=== PATIENT | male | born 1975 | race Caucasian/White ===

== ENCOUNTER 2023-01-02 21:52 | Inpatient (IN) | payer MEDICAID, OTHER ==
[~2023-01-02] VITALS: Ht 182.9 cm; Wt 84.1 kg
[2023-01-02 22:08] LABS: BASOPHILS # (AUTO) 0.1 X10'3 (0-0.2); BASOPHILS % (AUTO) 0.8 % (0-1); EOSINOPHILS # (AUTO) 0.3 X10'3 (0-0.9); EOSINOPHILS % (AUTO) 3.9 % (0-6); HEMATOCRIT 49.7 % (42.0-52.0); HEMOGLOBIN 16.8 g/dl (14.0-17.9); LYMPHOCYTES # (AUTO) 2.4 X10'3 (1.1-4.8); LYMPHOCYTES % (AUTO) 33.4 % (21-51); MEAN CORPUSCULAR HEMOGLOBIN 29.5 PG (27.0-31.0); MEAN CORPUSCULAR HGB CONC 33.7 g/dL (33.0-36.5); MEAN CORPUSCULAR VOLUME 87.4 FL (78-98); MEAN PLATELET VOLUME 6.5 FL (7.4-10.4); MONOCYTES # (AUTO) 0.5 X10'3 (0-0.9); MONOCYTES % (AUTO) 6.6 % (2-12); NEUTROPHILS % (AUTO) 55.3 % (42-75); PLATELET COUNT 292 X10'3 (140-440); RED BLOOD COUNT 5.68 X10'6 (4.70-6.10); RED CELL DISTRIBUTION WIDTH 14.4 % (11.5-14.5); WHITE BLOOD COUNT 7.3 X10'3 (4.5-11.0)
[2023-01-02 22:20] LABS: ALANINE AMINOTRANSFERASE 24 U/L (12-78); ALBUMIN 3.1 G/DL (3.4-5.0); ALBUMIN/GLOBULIN RATIO 0.7 (1.1-1.5); ALKALINE PHOSPHATASE 72 IU/L (46-116); ANION GAP 5 (8-16); ASPARTATE AMINO TRANSFERASE 11 U/L (10-37); BILIRUBIN,TOTAL 0.3 MG/DL (0.1-1.0); BLOOD UREA NITROGEN 9 MG/DL (7-18); BUN/CREATININE RATIO 10.7 (10.0-20.0); CHLORIDE 103 MMOL/L (99-107); CREATININE 0.84 MG/DL (0.60-1.10); GLUCOSE 203 MG/DL (70-104); POTASSIUM 3.7 MMOL/L (3.5-5.1); SODIUM 141 MMOL/L (135-145); TOTAL CARBON DIOXIDE 32.9 MMOL/L (24-32); TOTAL PROTEIN 7.4 G/DL (6.4-8.2); eGFR > 90 ML/MIN
[2023-01-02] MEDS ORDERED: losartan 50mg tablet PO ONE (22:40)
[2023-01-03] VITALS (12 sets, daily range): BP systolic 107–185; BP diastolic 50–106
[2023-01-03] MEDS ORDERED: acetaminophen 325mg tablet PO PRN ×2 (01:35)
[2023-01-03] MEDS ORDERED: diphenhydrAMINE 25mg capsule PO PRN (01:35)
[2023-01-03] MEDS ORDERED: HYDROcodone/acetaminophen 10/325mg tab PO PRN (01:35)
[2023-01-03] MEDS ORDERED: mag hydrox/Alum hydrox/simeth 30ml oral suspension PO PRN (01:35)
[2023-01-03] MEDS ORDERED: magnesium hydroxide 30ml (MOM) UD suspension PO PRN (01:35)
[2023-01-03] MEDS ORDERED: diphenhydrAMINE 50 mg/ml inj IV PRN (01:35)
[2023-01-03] MEDS ORDERED: HYDROcodone/acetaminophen 5mg/325mg tablet PO PRN (01:35)
[2023-01-03] MEDS ORDERED: ondansetron 4mg rapidly disintigrating tab PO PRN (01:35)
[2023-01-03] MEDS ORDERED: bisacodyl 10mg suppository rectal RC PRN (01:35)
[2023-01-03] MEDS ORDERED: ondansetron/PF 4mg/2ml inj IV PRN (01:35)
[2023-01-03] MEDS ORDERED: morphine 2 MG/ML inj. syringe IV PRN ×2 (01:35)
[2023-01-03] MEDS ORDERED: aspirin 325mg tablet PO ONE (01:45)
[2023-01-03] MEDS ORDERED: LORazepam 2 mg/ml vial IV ONE (01:50)
[2023-01-03] MEDS ORDERED: iohexol 350MG/ML 100ml bottle IV ONE (02:00)
--- NOTE | 2023-01-03 02:25 | NUR ---
Patient to CT
[2023-01-03] MEDS: normal saline 1000ml 1,000 ML IV SCH ×3 (02:55→21:35)
[2023-01-03 03:41] LABS: APTT 27 SECONDS (22-32); D-DIMER 0.25 MG/L FEU (0-0.50)
[2023-01-03 03:52] LABS: CREATINE KINASE 47 U/L (39-308); LIPASE < 50 U/L (73-393); MAGNESIUM 1.9 MG/DL (1.5-2.4); PHOSPHORUS 3.9 MG/DL (2.3-4.5)
[2023-01-03 03:54] LABS: ETHANOL < 0.010 GM/DL (0.0-0.010)
[2023-01-03 04:01] LABS: HEMOGLOBIN A1C 9.3 % (4.5-6.2)
[2023-01-03] MEDS ORDERED: NO HOME MEDS (04:34)
--- NOTE | 2023-01-03 07:55 | NUR ---
RN PAGED DR ANDINO TO CALL ED D/T PT ADM DGX NSTEMI/TROP 92/HEPARIN DRIP HAS NOT BEEN STARTED.
[2023-01-03] MEDS: varenicline tartrate 1mg tablet PO SCH ×2 (08:00→19:16)
[2023-01-03] MEDS: docusate sod 100mg capsule PO SCH ×2 (08:00→19:15)
--- NOTE | 2023-01-03 08:25 | NUR ---
RN UNABLE TO GET NITRO PATCH OUT OF [facility]. PHARMACY CALLED AND WILL DELIVER TO ED.
[2023-01-03] MEDS: pantoprazole 40mg Tablet.DR PO SCH (08:29)
[2023-01-03] MEDS: aspirin 81mg, enteric-coated 1 TAB TABLET.DR PO SCH (08:29)
[2023-01-03] MEDS: lisinopril 10 MG tablet PO SCH (08:30)
[2023-01-03] MEDS: atorvastatin 20mg tablet PO SCH (08:30)
[2023-01-03] MEDS: heparin, porcine 5000 units/ml vial SQ SCH ×2 (08:32→16:00)
[2023-01-03] MEDS ORDERED: regadenoson 0.4mg/5ml syringe IV PRN (08:35)
[2023-01-03] MEDS ORDERED: aminophylline 250mg/10ml inj. IV PRN (08:35)
[2023-01-03] MEDS ORDERED: nitroGLYCERIN 0.4mg SUBLingual tab SL PRN (08:35)
[2023-01-03] MEDS ORDERED: metoprolol tartrate 1mg/ml inj IV PRN (08:35)
--- NOTE | 2023-01-03 08:39 | NUR ---
DR ANDINO CALLED AND STATED THAT HEPARIN DRIP IS NOT NEEDED. HE WILL ORD HYDRALAZINE PRN FOR UNCONTROLLED BP. RN TO START CHECKING BLOOD SUGAR AND HE WILL PLACE HYPERGLYCEMIA PROTOCOL ORDS. PT WILL HAVE STRESS TEST SO NPO AND NO CAFFEINE.
[2023-01-03] MEDS ORDERED: dextrose 50%-water 50ml dispensing syringe IV PRN ×2 (08:40)
[2023-01-03] MEDS ORDERED: DEXTROSE 15 GM of carb/4 tabs (each vial/BOTTLE has 4 tablets) PO PRN ×2 (08:40)
[2023-01-03] MEDS ORDERED: hydrALAZINE 20mg/ml inj. IV PRN (08:40)
[2023-01-03] MEDS ORDERED: insulin Lispro (HumaLOG) vial - multi-dose SQ SCH (08:40)
[2023-01-03] MEDS ORDERED: MESSAGE TO PHARMACY PO ONE (08:40)
[2023-01-03] MEDS ORDERED: glucagon, human recombinant 1mg kit SUBCUT PRN (08:40)
--- NOTE | 2023-01-03 09:08 | NUR ---
received report from Evelia RN, pt has had no caffeine for 2 days, no food since 01/02 at 1600. Plan to do cardiac stress test this am.
--- NOTE | 2023-01-03 09:14 | NUR ---
RN WILL CRUTCHER HELPER LOPRESSOR FROM PHARMACY. NITRO PATCH REMOVED FROM PT LEFT CHEST. PT HAS BEEN NPO SINCE 01/02
[2023-01-03] MEDS: metoprolol tartrate 12.5mg (1/2 tablet) PO SCH ×2 (09:58→19:15)
--- NOTE | 2023-01-03 10:54 | NUR ---
PT TAKEN TO STRESS TEST.
--- NOTE | 2023-01-03 10:55 | NUR ---
pt to nuc med on monitor with RN, pt is SR on monitor, HR 70, no chest pain/discomfort, able to transfer self without assist to wheelchair
[2023-01-03 11:17] LABS: URINE AMPHETAMINE SCREEN NEGATIVE (Neg); URINE BARBITUATE SCREEN NEGATIVE (Neg); URINE BENZODIAZEPINES SCREEN NEGATIVE (Neg); URINE CANNABINOID SCREEN POSITIVE (Neg); URINE COCAINE SCREEN NEGATIVE (Neg); URINE METHADONE SCREEN NEGATIVE (Neg); URINE OPIATE SCREEN NEGATIVE (Neg); URINE PHENCYCLIDINE SCREEN NEGATIVE (Neg)
--- NOTE | 2023-01-03 12:28 | NUR ---
Report received from PABLO Altamirano. Addendum: 01/03/23 at 1229 by Jeannie Webb RN Patient at [facility].
--- NOTE | 2023-01-03 12:37 | NUR ---
pt going to short stay, gave Jeannie RN report regarding cardiac stress test
--- NOTE | 2023-01-03 14:35 | NUR ---
Report called to PABLO Barragan on PCU. Patient stable at transfer of care. Patient denies chest pain.
[2023-01-03] MEDS ORDERED: amLODIPine 5mg tablet PO ONE (15:30)
--- NOTE | 2023-01-03 17:52 | NUR ---
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 he goes into anaphylactic shock. I will pass onto to octavio RN.
--- NOTE | 2023-01-03 18:20 | NUR ---
Patient in room U 3012. I have received report from PABLO Obregon and had the opportunity to ask questions and assume patient care. Patient sitting on side of bed with basin in arms, looking nauseous. He says dinner make him sick as he is allergic to most fruits and vegatables. I offered Zofran for nausea, he declined and ordered him a sandwich.
[2023-01-03] MEDS ORDERED: insulin glargine (Lantus) pen - multi-dose SQ SCH (21:00)
[2023-01-04 02:00] VITALS: BP 128/88
[2023-01-04 06:16] LABS: BASOPHILS # (AUTO) 0.1 X10'3 (0-0.2); BASOPHILS % (AUTO) 0.8 % (0-1); EOSINOPHILS # (AUTO) 0.2 X10'3 (0-0.9); EOSINOPHILS % (AUTO) 2.8 % (0-6); HEMOGLOBIN 16.7 g/dl (14.0-17.9); LYMPHOCYTES # (AUTO) 1.9 X10'3 (1.1-4.8); MEAN CORPUSCULAR HEMOGLOBIN 29.4 PG (27.0-31.0); MEAN CORPUSCULAR VOLUME 86.5 FL (78-98); MEAN PLATELET VOLUME 6.6 FL (7.4-10.4); MONOCYTES # (AUTO) 0.5 X10'3 (0-0.9); MONOCYTES % (AUTO) 6.4 % (2-12); NEUTROPHILS # (AUTO) 4.9 X10'3 (1.8-7.7); PLATELET COUNT 285 X10'3 (140-440); RED BLOOD COUNT 5.67 X10'6 (4.70-6.10); RED CELL DISTRIBUTION WIDTH 14.3 % (11.5-14.5); WHITE BLOOD COUNT 7.5 X10'3 (4.5-11.0)
--- NOTE | 2023-01-04 06:24 | NUR ---
Problems reprioritized. Patient report given, questions answered & plan of care reviewed with PABLO Richardson.
[2023-01-04 06:30] VITALS: BP 150/102
[2023-01-04 06:33] LABS: ALANINE AMINOTRANSFERASE 28 U/L (12-78); ALBUMIN 2.9 G/DL (3.4-5.0); ALBUMIN/GLOBULIN RATIO 0.7 (1.1-1.5); ALKALINE PHOSPHATASE 69 IU/L (46-116); ANION GAP 6 (8-16); ASPARTATE AMINO TRANSFERASE 14 U/L (10-37); BILIRUBIN,TOTAL 0.5 MG/DL (0.1-1.0); BLOOD UREA NITROGEN 11 MG/DL (7-18); BUN/CREATININE RATIO 12.8 (10.0-20.0); CALCIUM 8.6 MG/DL (8.5-10.1); CHLORIDE 103 MMOL/L (99-107); CHOL/HDL RATIO 6.2 (0.00-4.99); CHOLESTEROL 181 MG/DL (0-200); CREATININE 0.86 MG/DL (0.60-1.10); GLUCOSE 161 MG/DL (70-104); HDL CHOLESTEROL 29 MG/DL (35-60); LDL CHOLESTEROL 95 MG/DL (50-100); POTASSIUM 3.9 MMOL/L (3.5-5.1); SODIUM 140 MMOL/L (135-145); TOTAL CARBON DIOXIDE 31.5 MMOL/L (24-32); TOTAL PROTEIN 6.8 G/DL (6.4-8.2); TRIGLYCERIDES 267 MG/DL (20-135); eGFR > 90 ML/MIN
[2023-01-04] MEDS: normal saline 1000ml 1,000 ML IV SCH (07:35)
[2023-01-04] MEDS: varenicline tartrate 1mg tablet PO SCH (08:00)
[2023-01-04] MEDS ORDERED: amLODIPine 5mg tablet PO SCH (08:00)
[2023-01-04] MEDS ORDERED: nicotine 14mg patch - 24hr TD SCH (08:00)
[2023-01-04] MEDS ORDERED: atorvastatin 20mg tablet PO SCH (08:40)
[2023-01-04] MEDS: aspirin 81mg, enteric-coated 1 TAB TABLET.DR PO SCH (09:21)
[2023-01-04] MEDS: pantoprazole 40mg Tablet.DR PO SCH (09:21)
[2023-01-04] MEDS: docusate sod 100mg capsule PO SCH (09:22)
[2023-01-04] MEDS: lisinopril 10 MG tablet PO SCH (09:22)
[2023-01-04] MEDS: metoprolol tartrate 12.5mg (1/2 tablet) PO SCH (09:23)
[2023-01-04] MEDS: atorvastatin 20mg tablet PO SCH (09:23)
[2023-01-04] MEDS: heparin, porcine 5000 units/ml vial SQ SCH ×2 (09:25)
[2023-01-04 11:00] VITALS: BP 155/99
--- NOTE | 2023-01-04 11:42 | NUR ---
DM Consult: Pt hx DM A1C 9.3% hasn't seen PCP in two years and doesn't take meds at home per EMR. Pt seen by RD for written/verbal DM diet ed w/ RD contact information provided. Pt reports had DM in past when ~300 pounds but no longer needed meds after wt loss. Pt reports allergy to all fruits and vegetables per "guard entrance registrar in [place]" though proceeds to report can drink OJ but not OJ w/ pulp. Pt reports he can tolerate some cooked fruits/veggies receives oral swelling/scars from his food allergens but "after it passes my mouth I have no issues." Pt admits has been told he can have some foods such as peas and onions but mental block to eating given allergy hx. Unsure allergy accuracy but dietary notified of reported allergens. Pt does report takes routine MVM at home. RD encouraged pt to contact dietitian's office if further nutrition questions/concerns. Addendum: 01/04/23 at [address] Amended: Links added.
[2023-01-04] MEDS ORDERED: NICO-631 TD (12:30)
[2023-01-04] MEDS ORDERED: LOP12.5T PO (12:30)
[2023-01-04] MEDS ORDERED: METF-900 PO (12:30)
[2023-01-04] MEDS ORDERED: NOR5T PO (12:30)
[2023-01-04] MEDS ORDERED: ATOR20TA66 PO (12:30)
[2023-01-04] MEDS ORDERED: LISI10TA27 PO (12:30)
--- NOTE | 2023-01-04 13:00 | NUR ---
PT DISCHARGED HOME. ALL DC INSTRUCTIONS EXPLAINED TO PATIENT WITH PATIENT VERBALIZING UNDERSTANDING REGARDING PLAN OF CARE. PT INSTRUCTED TO ADVISOR [employer] FOUNDER HIS NEW DIABETES SUPPLIES AND TO LOG HIS BLOOD SUGARS UNTIL HIS FOLLOW UP WITH HIS NEW PRIMARY CARE DOCTOR. HE WILL ALSO TAKE AND LOG HIS BLOOD PRESSURE TWICE A DAY AND PRESENT THESE NUMBERS AT HIS FOLLOW UP PMD APPT. PT INSTRUCTED TO FIND A PRIMARY CARE PHYSICAIN BLAZE BUT IF HE RUNS OUT OF HIS INITIAL MEDICATIONS BEFORE HIS APPT - HE HAS BEEN INSTRUCTED TO OBTAIN REFILLS FROM [facility] WITH HIS OLD PRIMARY CARE DOCTOR ALL PIVS HAVE BEEN DC'D WITH CATHETER INTACT. PT BLOOD PRESSURE AND ALL OTHER VS STABLE AT THIS TIME. PT, WHO IS A/OX4 LEFT VIA ON FOOT PER HIS REQUEST.
== END 2023-01-04 13:50 | disposition home or self-care (01) | DRG 199 ==
LOC: ER 21:53 → ED HOLD 01-03 01:41 → PCU 3S 01-03 14:50
PROVIDERS: ADMIT Family Medicine; ATTEND Family Medicine
PROC: 4A02XM4 Measurement of Cardiac Total Activity, External Approach (ICD-10-PCS; principal; 2023-01-03)
PROC: 3E033HZ Introduction of Radioactive Substance into Peripheral Vein, Percutaneous Approach (ICD-10-PCS; 2023-01-03)
PROC: B32T1ZZ Computerized Tomography (CT Scan) of Left Pulmonary Artery using Low Osmolar Contrast (ICD-10-PCS; 2023-01-03)
PROC: B3201ZZ Computerized Tomography (CT Scan) of Thoracic Aorta using Low Osmolar Contrast (ICD-10-PCS; 2023-01-03)
PROC: B32S1ZZ Computerized Tomography (CT Scan) of Right Pulmonary Artery using Low Osmolar Contrast (ICD-10-PCS; 2023-01-03)
DX: I16.1 Hypertensive emergency (principal); I21.A1 Myocardial infarction type 2; E88.09 Other disorders of plasma-protein metabolism, not elsewhere classified; E11.65 Type 2 diabetes mellitus with hyperglycemia; I10 Essential (primary) hypertension; F17.210 Nicotine dependence, cigarettes, uncomplicated; F12.10 Cannabis abuse, uncomplicated; Z91.018 Allergy to other foods; Z71.6 Tobacco abuse counseling; Z71.51 Drug abuse counseling and surveillance of drug abuser
CPT/HCPCS: 36415; 70450; 70544; 70547; 70551; 71045; 71275; 78452; 80053; 80061; 80305; 80320; 82550; 82948; 83036; 83690; 83735; 83880; 84100; 84443; 84484; 85025; 85379; 85610; 85730; 87081; 93017; 93306; 99285; A9500; G0378; J0360; J1644; J1815; J2060; J2785; J3490; J7030; Q9967

== ENCOUNTER 2024-05-19 13:55 | Emergency (ER) | payer MEDICAID ==
[~2024-05-19] VITALS: Ht 167.6 cm; Wt 95.2 kg
[~2024-05-19 13:55] MED LIST: ATOR20TA66 PO; LISI10TA27 PO; LOP12.5T PO; NICO-631 TD; NOR5T PO
[2024-05-19] MEDS ORDERED: AMOX-580 PO (16:27)
[2024-05-19] MEDS ORDERED: ACET-1084 PO (16:27)
[2024-05-19] MEDS ORDERED: IBUP-1986 PO (16:27)
[2024-05-19 16:32] VITALS: BP 134/78; PULSE 80; RESP 16; TEMP 98.2; O2SAT 99
== END 2024-05-19 16:45 | disposition home or self-care (01) ==
LOC: ER 13:56
DX: K04.7 Periapical abscess without sinus (principal); F12.90 Cannabis use, unspecified, uncomplicated; Z91.018 Allergy to other foods; Z86.14 Personal history of Methicillin resistant Staphylococcus aureus infection
CPT/HCPCS: 99283